=== PATIENT | female | born 1990 | race Caucasian/White ===

== ENCOUNTER 2018-01-05 22:39 | Emergency (ER) | payer SELFPAY | END 2018-01-06 00:10 | disposition home or self-care (01) | LOC: D.ER 22:39 | DX: T14.8XXA Other injury of unspecified body region, initial encounter (principal); V89.2XXA Person injured in unspecified motor-vehicle accident, traffic, initial encounter; Y93.89 Activity, other specified; Y92.410 Unspecified street and highway as the place of occurrence of the external cause; S40.012A Contusion of left shoulder, initial encounter; I10 Essential (primary) hypertension; E05.90 Thyrotoxicosis, unspecified without thyrotoxic crisis or storm; F17.200 Nicotine dependence, unspecified, uncomplicated ==

== ENCOUNTER 2019-07-06 18:19 | Emergency (ER) | payer MEDICAID ==
[~2019-07-06] VITALS: Ht 149.9 cm; Wt 41.4 kg
[2019-07-06 18:55] VITALS: BP 97/62; Ht 149.9 cm; Wt 41.4 kg
[2019-07-06] MEDS ORDERED: BUPRENORPHINE HC8 MG SL (18:57)
[2019-07-06] MEDS ORDERED: PRENAVITE1 TAB PO (18:57)
[2019-07-06] MEDS ORDERED: CLARITIN 10 MG10 MG PO (18:57)
[2019-07-06 19:27] LABS: BASOPHILS 0.2 % (0-2); EOSINOPHILS 1.2 % (0-7); HEMATOCRIT 35.7 % (36.0-48.0); HEMOGLOBIN 12.2 g/dL (12-16); IMMATURE GRANULOCYTES 0.1 % (0-5); LYMPHOCYTES 27.3 % (15-50); MCH 32.8 pg (26.0-34.0); MCHC 34.2 g/dL (31.0-37.0); MEAN PLATELET VOLUME 9.2 fL (7.4-10.4); MONOCYTES 7.9 % (2-11); NEUTROPHILS 63.3 % (40-80); PLATELET COUNT 318 10x3/uL (130-400); RBC 3.72 10x6/uL (4.00-5.40); RDW 12.3 % (11.5-14.5); WBC 10.3 10x3/uL (4.8-10.8)
[2019-07-06 19:40] LABS: ALBUMIN 3.7 g/dL (3.4-5.0); ALKALINE PHOSPHATASE 34 U/L (46-116); ALT (SGPT) 15 U/L (10-68); APPEARANCE CLEAR (CLEAR); BILIRUBIN NEGATIVE (NEGATIVE); BILIRUBIN - TOTAL 0.39 mg/dL (0.2-1.3); CALC OSMOLALITY 272 mosm/kg (275-300); CALCIUM 8.5 mg/dL (8.5-10.1); CARBON DIOXIDE 28.4 mmol/L (21.0-32.0); CHLORIDE - SERUM 103 mmol/L (98-107); COLOR YELLOW (YELLOW); CREATININE - SERUM 0.5 mg/dL (0.6-1.3); GLUCOSE 71 mg/dL (74-106); GLUCOSE NEGATIVE (NEGATIVE); KETONE NEGATIVE (NEGATIVE); NITRITE NEGATIVE (NEGATIVE); POTASSIUM - SERUM 3.9 mmol/L (3.5-5.1); PROTEIN NEGATIVE (NEGATIVE); PROTEIN - SERUM 6.4 g/dL (6.4-8.2); SODIUM 138 mmol/L (136-145); UREA NITROGEN 10 mg/dL (7-18); UROBILINOGEN NORMAL (NORMAL); eGFR NON AFRICAN AMERICAN > 90 mL/min (90-120)
[2019-07-06 19:41] LABS: BACTERIA FEW /hpf (NEGATIVE); EPITHELIAL CELLS 0-5 /hpf (0-5); HCG URINE POSITIVE (NEGATIVE); RED CELLS - URINE OCC /hpf (0-5); WHITE CELLS - URINE 0-5 /hpf (NEGATIVE)
[2019-07-06 20:02] LABS: HCG - QUANTITATIVE (MATERNAL) 113773 mIU/mL
== END 2019-07-06 20:05 | disposition left against medical advice (07) ==
LOC: D.ER 18:19
PROVIDERS: Family Medicine
DX: O26.90 Pregnancy related conditions, unspecified, unspecified trimester (principal)